=== PATIENT | female | born 1985 | race Caucasian/White ===

== ENCOUNTER 2016-10-17 10:33 | Emergency (ER) | payer OTHER ==
[~2016-10-17] VITALS: Ht 152.4 cm; Wt 52.3 kg
[~2016-10-17 10:33] MED LIST: PRLSR20 PO; RANI150T3 PO
[2016-10-17 10:44] VITALS: TEMP 36.6; Ht 152.4 cm; Wt 52.3 kg
[2016-10-17] MEDS ORDERED: KETOROLAC TROMETHAMINE 30 MG/ML VIAL IV STA (11:48)
[2016-10-17] MEDS ORDERED: SODIUM CHLORIDE 0.9% 1000ML 2,000 ML IV STA (11:48)
[2016-10-17 12:08] LABS: BASO % 0.2 %; BASO ABS # 0.03 K/uL (0-0.2); COMPLETE YES; EOS % 0.1 %; HEMATOCRIT 39.3 % (37-47); IG% 0.4 %; LYMPH % 19.1 %; LYMPH ABS # 2.33 K/uL (1.2-3.4); MEAN CELL VOLUME 100.5 fL (80-100); MEAN CORPUSCULAR HEMOGLOBIN 33.5 pg (25-34); MEAN CORPUSCULAR HGB CONC 33.3 g/dl (32-36); MEAN PLATELET VOLUME 9.2 fL (7.4-10.4); MONO % 5.8 %; NEUT % 74.4 %; PLATELET COUNT 356 K/uL (130-400); RED BLOOD COUNT 3.91 M/uL (4.2-5.4); WHITE BLOOD COUNT 12.22 K/uL (4.8-10.8)
[2016-10-17 12:16] LABS: BUN/CREATININE RATIO 19.2 (10-20); CALCIUM 9.6 mg/dl (8.5-10.1); CREATININE 0.96 mg/dl (0.60-1.20)
[2016-10-17] MEDS ORDERED: DiphenhydrAMINE HCL 50 MG/ML VIAL IV STA (12:47)
[2016-10-17 12:48] VITALS: BP 134/84; PULSE 86; O2SAT 100
--- NOTE | 2016-10-17 13:03 | DIAGNOSTIC IMAGING REPORT ---
CT SCAN OF THE BRAIN WITHOUT IV CONTRAST CLINICAL HISTORY: Headache. COMPARISON STUDY: CT of the brain dated 11/09/2006. TECHNIQUE: Unenhanced axial CT scan of the brain is performed from the vertex to the skull base. Automated dose control exposure was utilized. A dose lowering technique was utilized adhering to the principles of ALARA. CT DOSE: 638.56 mGycm FINDINGS: Brain parenchyma: The brain parenchyma is normal in appearance. There is no hemorrhage, mass effect, or evidence of acute territorial ischemia by CT criteria. [place]-white matter is preserved. No extra-axial fluid collection is seen. Ventricles, sulci, cisterns: Normal in configuration. Intracranial vasculature: The visualized intracranial vasculature at the skull base is normal in appearance. Calvarium: Unremarkable. Sinuses and mastoids: The visualized paranasal sinuses are clear. The mastoid air cells are well pneumatized. Orbits: The bony orbits are grossly intact. IMPRESSION: No acute intracranial abnormality. Electronically signed by: Jaxson Santiago M.D. 10/17/2016 12:44 PM Dictated Date/Time: 10/17/2016 12:43 PM
--- NOTE | 2016-10-17 17:14 | EMERGENCY ROOM VISIT NOTE ---
History Report prepared by William: Deisy Dillon Under the Supervision of: Judi SanchezO. First contact with patient: 11:39 Chief Complaint: HEAD PAIN Stated Complaint: HEAD PAIN History of Present Illness The patient is a 31 year old female who presents to the Emergency Room with complaints of worsening head pain for the past two weeks. She states that her pain has been constant along the sides of her head bilaterally for the past two weeks. She describes her pain as "tight and burning." The patient saw her PCP a few days ago for this pain and was started on Prednisone. She states that her symptoms have persisted and today her pain is worse. She denies any modifying factors. The patient rates her current pain as an 8.5/10 in severity. She notes that the pain is along her scalp/skull. It is not a deep/internal headache. She has a history of migraine headaches, but states that this feels completely different. Pt denies rash, changes in vision, fevers, chest pain, shortness of breath, nausea, vomiting, diarrhea, pain with urination, and melena. She denies any recent trauma or injury to her head. She started shaking this morning. LNMP was 2 weeks ago. Source of History: patient Onset: 2 weeks ago Position: head Symptom Intensity: 8.5/10 Quality: burning, other (tight) Timing: constant, worsening Associated Symptoms: No fevers, No chest pain, No SOB, No nausea, No vomiting, No melena, No diarrhea, No urinary symptoms, No rash Review of Systems See HPI for pertinent positives & negatives. A total of 10 systems reviewed and were otherwise negative. Past Medical & Surgical Medical Problems: (1) Atrophic gastritis without mention of hemorrhage (2) Chronic sinusitis, unspecified (3) Other specified cardiac dysrhythmias (4) Reflux esophagitis Family History FHx: hypertension Social History Smoking Status: Current Every Day Smoker Marital Status: single Housing Status: lives with family Occupation Status: unemployed Current/Historical Medications Scheduled Omeprazole (Prilosec), 20 MG PO BID Ranitidine Hcl (Zantac), 150 MG PO BID Allergies Coded Allergies: No Known Allergies (Unverified , 10/15/15) Physical Exam Vital Signs Date Time Temp Pulse Resp B/P (MAP) Pulse Ox O2 Delivery O2 Flow Rate FiO2 10/17/16 12:48 86 18 134/84 100 Room Air 10/17/16 10:44 36.6 110 22 162/108 100 Room Air Physical Exam GENERAL: alert, sitting up in bed, well appearing, well nourished, no distress, non-toxic HEAD: Base of occiput acute reproducible tenderness tracking up to bilateral parietal regions. No tenderness over TA EYE EXAM: normal conjunctiva, PERRL and EOM's grossly intact OROPHARYNX: no exudate, no erythema, lips, buccal mucosa, and tongue normal and mucous membranes are moist NECK: supple, no nuchal rigidity, no adenopathy, non-tender LUNGS: Clear to auscultation. Normal chest wall mechanics HEART: no murmurs, S1 normal and S2 normal ABDOMEN: abdomen soft, non-tender, normo-active bowel sounds, no masses, no rebound or guarding. BACK: Back is symmetrical on inspection and there is no deformity, no midline tenderness, no CVA tenderness. SKIN: no rashes and no bruising UPPER EXTREMITIES: upper extremities are grossly normal. LOWER EXTREMITIES: No pitting edema. NEURO EXAM: Normal sensorium, cranial nerves II-XII intact, normal speech, no weakness of arms, no weakness of legs. No drift. Finger to nose intact. Gross sensation intact. Medical Decision & Procedures ER Provider Diagnostic Interpretation: Radiology results as stated below per my review and the radiologist's interpretation: CT SCAN OF THE BRAIN WITHOUT IV CONTRAST CLINICAL HISTORY: Headache. COMPARISON STUDY: CT of the brain dated 11/09/2006. TECHNIQUE: Unenhanced axial CT scan of the brain is performed from the vertex to the skull base. Automated dose control exposure was utilized. A dose lowering technique was utilized adhering to the principles of ALARA. CT DOSE: 638.56 mGycm FINDINGS: Brain parenchyma: The brain parenchyma is normal in appearance. There is no hemorrhage, mass effect, or evidence of acute territorial ischemia by CT criteria. [place]-white matter is preserved. No extra-axial fluid collection is seen. Ventricles, sulci, cisterns: Normal in configuration. Intracranial vasculature: The visualized intracranial vasculature at the skull base is normal in appearance. Calvarium: Unremarkable. Sinuses and mastoids: The visualized paranasal sinuses are clear. The mastoid air cells are well pneumatized. Orbits: The bony orbits are grossly intact. IMPRESSION: No acute intracranial abnormality. Electronically signed by: Jaxson Santiago M.D. 10/17/2016 12:44 PM Dictated Date/Time: 10/17/2016 12:43 PM Laboratory Results 10/17/16 11:40 Red Blood Count 3.91, Mean Corpuscular Volume 100.5, Mean Corpuscular Hemoglobin 33.5, Mean Corpuscular Hemoglobin Concent 33.3, Mean Platelet Volume 9.2, Neutrophils (%) (Auto) 74.4, Lymphocytes (%) (Auto) 19.1, Monocytes (%) ( Auto) 5.8, Eosinophils (%) (Auto) 0.1, Basophils (%) (Auto) 0.2, Neutrophils # ( Auto) 9.09, Lymphocytes # (Auto) 2.33, Monocytes # (Auto) 0.71, Eosinophils # ( Auto) 0.01, Basophils # (Auto) 0.03 10/17/16 11:40 Test 10/17/16 11:40 White Blood Count 12.22 K/uL (4.8-10.8) Red Blood Count 3.91 M/uL (4.2-5.4) Hemoglobin 13.1 g/dL (12.0-16.0) Hematocrit 39.3 % (37-47) Mean Corpuscular Volume 100.5 fL (80-100) Mean Corpuscular Hemoglobin 33.5 pg (25-34) Mean Corpuscular Hemoglobin Concent 33.3 g/dl (32-36) Platelet Count 356 K/uL (130-400) Mean Platelet Volume 9.2 fL (7.4-10.4) Neutrophils (%) (Auto) 74.4 % Lymphocytes (%) (Auto) 19.1 % Monocytes (%) (Auto) 5.8 % Eosinophils (%) (Auto) 0.1 % Basophils (%) (Auto) 0.2 % Neutrophils # (Auto) 9.09 K/uL (1.4-6.5) Lymphocytes # (Auto) 2.33 K/uL (1.2-3.4) Monocytes # (Auto) 0.71 K/uL (0.11-0.59) Eosinophils # (Auto) 0.01 K/uL (0-0.5) Basophils # (Auto) 0.03 K/uL (0-0.2) RDW Standard Deviation 57.5 fL (36.4-46.3) RDW Coefficient of Variation 15.6 % (11.5-14.5) Immature Granulocyte % (Auto) 0.4 % Immature Granulocyte # (Auto) 0.05 K/uL (0.00-0.02) Anion Gap 8.0 mmol/L (3-11) Est Creatinine Clear Calc Drug Dose 61.0 ml/min Estimated GFR () 91.3 Estimated GFR (Non- 78.8 BUN/Creatinine Ratio 19.2 (10-20) Calcium Level 9.6 mg/dl (8.5-10.1) Laboratory results per my review. Medications Administered Medications (Trade) Dose Ordered Sig/Garcia Route Start Time Stop Time Status Last Admin Dose Admin Sodium Chloride 2,000 ml @ 999 mls/hr Q2H1M STAT IV 10/17/16 11:48 10/17/16 13:49 DC 10/17/16 12:01 999 MLS/HR Ketorolac Tromethamine (Toradol Inj) 30 mg NOW STAT IV 10/17/16 11:48 10/17/16 11:49 DC 10/17/16 12:02 30 MG Diphenhydramine HCl (Benadryl Inj) 50 mg NOW STAT IV 10/17/16 12:47 10/17/16 12:48 DC 10/17/16 12:56 50 MG ED Course ED COURSE: Vital signs were reviewed and showed hypertensive, tachycardic. The patients medical record was reviewed The above diagnostic studies were performed and reviewed. ED treatments and interventions as stated above. 1139: The patient was evaluated in room C9. A complete history and physical examination was performed. 1148: Toradol 30 mg IV, NSS 2000 ml @ 999 mls/hr IV 1232: I reassessed the patient. She is feeling better and going to CT. 1247: Benadryl 50 mg IV 1315: Upon reevaluation, the patient is doing well. I discussed my findings with the patient and she understands and agrees with the treatment plan. Based on the patients age, coexisting illnesses, exam and lab findings the decision to treat as an outpatient was made. The patient remained stable while under my care. The patient appeared well at the time of discharge. Medical Decision Differential Diagnosis includes but is not limited to headache, tension headache , cluster headache, migraine, subarachnoid hemorrhage, meningitis, mass, central venous thrombus, concussion, trauma and epidural/subdural hemorrhage. Patient is a 31-year-old female who presents to the ER for headache which tracks from her OA joint to the bilateral parietal regions. It is reproducible. I believe that this is likely secondary to her posterior cervical nerves. Patient is otherwise neurologically intact. CT head was negative. No fevers. No signs meningitis or encephalitis. I do not believe this is consistent with subarachnoid bleed. CBC shows a white count of 12,000 which I favor is likely elevated secondary to steroids. BMP is unremarkable. Patient was given IV Toradol and Benadryl. She had improvement of her symptoms. She was discharged to follow-up with her primary care doctor and encouraged to continue her steroids. Discussed with Pt concerning signs and symptoms to watch out for. Pt was instructed to follow up with their PCP and discussed with the patient their option to return to the ED at anytime for persistent or worsening symptoms. The appropriate anticipatory guidance and out- patient management, including indications for return to the emergency department , were explained at length to the patient and understood. Medication Reconcilliation Current Medication List: was personally reviewed by me Blood Pressure Screening Patient's blood pressure: Elevated blood pressure Blood pressure disposition: Elevated BP felt to be situational Impression Primary Impression: Cephalgia Scribe Attestation The scribe's documentation has been prepared under my direction and personally reviewed by me in its entirety. I confirm that the note above accurately reflects all work, treatment, procedures, and medical decision making performed by me. Departure Information Dispostion Home / Self-Care Referrals No Doctor, Assigned (PCP) Bandar Dotson M.D. Forms HOME CARE DOCUMENTATION FORM, IMPORTANT VISIT INFORMATION, WORK / SCHOOL INSTRUCTIONS Patient Instructions ED Cephalgia Unspecified, My [facility] Additional Instructions Please follow up with your primary care doctor with in the next 24 hours. Any worsening of your symptoms, please return to the ED immediately. This includes any fevers greater than 100.4, worsening pain, chest pain, shortness breath, persistent nausea, vomiting, unable to eat or drink, or any other concerning signs or symptoms from your standpoint. You were given medications during this visit that will inhibit your ability to drive, operate machinery and work. Please do NOT drive, operate machinery, drink alcohol or work for the next 12hrs. Problem Qualifiers Primary Impression: Cephalgia Headache type: unspecified Headache chronicity pattern: unspecified pattern Intractability: not intractable Qualified Codes: R51 - Headache
== END 2016-10-17 13:18 | disposition home or self-care (01) ==
LOC: C.EDB 10:35 → C.EDC 13:18
DX: R51 Headache (principal); K21.0 Gastro-esophageal reflux disease with esophagitis; Z82.49 Family history of ischemic heart disease and other diseases of the circulatory system; F17.210 Nicotine dependence, cigarettes, uncomplicated; Z79.899 Other long term (current) drug therapy

== ENCOUNTER 2017-06-03 12:57 | Emergency (ER) | payer OTHER ==
[~2017-06-03] VITALS: Ht 152.4 cm; Wt 49.9 kg
[2017-06-03 13:03] VITALS: TEMP 36.4; Ht 152.4 cm; Wt 49.9 kg
[2017-06-03] MEDS ORDERED: RANITIDINE HCL 150 MG TAB PO ONE (13:15)
[2017-06-03 13:26] VITALS: O2SAT 97
[2017-06-03 13:34] LABS: BASO % 0.1 %; BASO ABS # 0.01 K/uL (0-0.2); EOS % 0.2 %; EOS ABS # 0.02 K/uL (0-0.5); HEMATOCRIT 41.6 % (37-47); HEMOGLOBIN 13.7 g/dL (12.0-16.0); IG# 0.02 K/uL (0.00-0.02); LYMPH % 15.5 %; LYMPH ABS # 1.63 K/uL (1.2-3.4); MEAN CELL VOLUME 97.4 fL (80-100); MEAN CORPUSCULAR HEMOGLOBIN 32.1 pg (25-34); MEAN CORPUSCULAR HGB CONC 32.9 g/dl (32-36); MEAN PLATELET VOLUME 9.6 fL (7.4-10.4); MONO % 4.4 %; MONO ABS # 0.46 K/uL (0.11-0.59); NEUT % 79.6 %; NEUT ABS # 8.36 K/uL (1.4-6.5); PLATELET COUNT 314 K/uL (130-400); RED CELL DISTRIBUTION WIDTH CV 15.3 % (11.5-14.5); RED CELL DISTRIBUTION WIDTH SD 54.2 fL (36.4-46.3)
--- NOTE | 2017-06-03 13:40 | DIAGNOSTIC IMAGING REPORT ---
CHEST ONE VIEW PORTABLE CLINICAL HISTORY: chest tight, palpitations chest pain COMPARISON STUDY: 03/08/2015 FINDINGS: The bones soft tissues and hemidiaphragms are normal. The cardiomediastinal silhouette is normal. The lungs are clear. The pulmonary vasculature is normal. IMPRESSION: Negative chest. The above report was generated using voice recognition software. It may contain grammatical, syntax or spelling errors. Electronically signed by: Bandar Manzano M.D. 06/03/2017 1:39 PM Dictated Date/Time: 06/03/2017 1:38 PM
[2017-06-03 13:52] LABS: CALCIUM 9.9 mg/dl (8.5-10.1); CREATININE 0.91 mg/dl (0.60-1.20); POTASSIUM 3.6 mmol/L (3.5-5.1)
[2017-06-03 13:55] LABS: TOTAL PROTEIN 8.6 gm/dl (6.4-8.2)
[2017-06-03 13:56] LABS: PTT PATIENT 30.3 SECONDS (21.0-31.0)
--- NOTE | 2017-06-03 14:20 | EMERGENCY ROOM VISIT NOTE ---
History Report prepared by William: Jocelyn Muhammad Under the Supervision of: Dr. Alena Olguin M.D. First contact with patient: 13:06 Chief Complaint: CARDIAC ASSESSMENT Stated Complaint: RIB CHEST & STOMACH PAIN History of Present Illness The patient is a 32 year old female who presents to the Emergency Room with complaints of a constant of rib pain starting a few months ago. The patient states that it comes and goes on both sides. She states that she woke up this morning and noticed her heart started to race after taking her medications. She reports that she thought she was having a panic attack so went to take a shower. She states that she became dizzy and lightheaded. She reports that she decided to lie down to in an attempt to control it. The patient states that when she did so, the pain radiated into her chest and her back. She currently rates her pain as a 5/10 in severity. The patient denies fever, urinary symptoms , recent long trips, a history of asthma, and a family history of blood clots. She notes that she is a smoker and has had an IUD in place since 2013. She notes that she had a scope done 8 years ago that showed she had an ulcer and gastritis. She has been on a PPI and Zantac since that time however she is attempting to wean off of these medicines at the recommendation of her PCP. Source of History: patient Onset: a few months ago Position: other (rib pain) Symptom Intensity: 5/10 Timing: constant Associated Symptoms: + chest pain, + back pain, No fevers, No urinary symptoms Note: The patient complains of a racing heart, lightheadedness, an dizziness. Review of Systems See HPI for pertinent positives & negatives. A total of 10 systems reviewed and were otherwise negative. Past Medical & Surgical Medical Problems: (1) Atrophic gastritis without mention of hemorrhage (2) Chronic sinusitis, unspecified (3) Gastric ulcer (4) Other specified cardiac dysrhythmias (5) Reflux esophagitis Social History Problems: (1) IUD (intrauterine device) in place Family History FHx: hypertension Social History Smoking Status: Current Every Day Smoker Marital Status: single Housing Status: lives with family Occupation Status: unemployed Current/Historical Medications Scheduled Omeprazole (Prilosec), 20 MG PO DAILY Allergies Coded Allergies: No Known Allergies (Unverified , 4/22/18) Physical Exam Vital Signs Date Time Temp Pulse Resp B/P (MAP) Pulse Ox O2 Delivery O2 Flow Rate FiO2 06/03/17 15:11 62 14 126/82 100 06/03/17 14:37 57 21 118/72 100 Room Air 06/03/17 13:28 97 Room Air 06/03/17 13:26 97 Room Air 06/03/17 13:16 74 06/03/17 13:11 68 131/96 98 Room Air 06/03/17 13:03 36.4 76 18 147/95 100 Room Air Physical Exam Vital signs reviewed. General: Well-appearing, in no significant distress. HEENT: No scleral icterus, PERRLA, neck supple. Atraumatic. Cardiovascular: Regular rate and rhythm, no extra sounds. Pulmonary: Clear to auscultation bilaterally, normal work of breathing. Abdomen: Soft, nontender, nondistended, positive bowel sounds. Musculoskeletal: Atraumatic, no peripheral edema. Neurologic: Patient awake alert and oriented x 3 Skin: Warm, dry, no rash Medical Decision & Procedures ER Provider Diagnostic Interpretation: Radiology results as stated below per my review and radiologist interpretation: CHEST ONE VIEW PORTABLE CLINICAL HISTORY: chest tight, palpitations chest pain COMPARISON STUDY: 03/08/2015 FINDINGS: The bones soft tissues and hemidiaphragms are normal. The cardiomediastinal silhouette is normal. The lungs are clear. The pulmonary vasculature is normal. IMPRESSION: Negative chest. The above report was generated using voice recognition software. It may contain grammatical, syntax or spelling errors. Electronically signed by: Bandar Manzano M.D. 06/03/2017 1:39 PM Dictated Date/Time: 06/03/2017 1:38 PM Laboratory Results 06/03/17 13:25 Red Blood Count 4.27, Mean Corpuscular Volume 97.4, Mean Corpuscular Hemoglobin 32.1, Mean Corpuscular Hemoglobin Concent 32.9, Mean Platelet Volume 9.6, Neutrophils (%) (Auto) 79.6, Lymphocytes (%) (Auto) 15.5, Monocytes (%) (Auto) 4.4, Eosinophils (%) (Auto) 0.2, Basophils (%) (Auto) 0.1, Neutrophils # (Auto) 8.36, Lymphocytes # (Auto) 1.63, Monocytes # (Auto) 0.46, Eosinophils # (Auto) 0.02, Basophils # (Auto) 0.01 06/03/17 13:25 Test 06/03/17 13:25 White Blood Count 10.50 K/uL (4.8-10.8) Red Blood Count 4.27 M/uL (4.2-5.4) Hemoglobin 13.7 g/dL (12.0-16.0) Hematocrit 41.6 % (37-47) Mean Corpuscular Volume 97.4 fL (80-100) Mean Corpuscular Hemoglobin 32.1 pg (25-34) Mean Corpuscular Hemoglobin Concent 32.9 g/dl (32-36) Platelet Count 314 K/uL (130-400) Mean Platelet Volume 9.6 fL (7.4-10.4) Neutrophils (%) (Auto) 79.6 % Lymphocytes (%) (Auto) 15.5 % Monocytes (%) (Auto) 4.4 % Eosinophils (%) (Auto) 0.2 % Basophils (%) (Auto) 0.1 % Neutrophils # (Auto) 8.36 K/uL (1.4-6.5) Lymphocytes # (Auto) 1.63 K/uL (1.2-3.4) Monocytes # (Auto) 0.46 K/uL (0.11-0.59) Eosinophils # (Auto) 0.02 K/uL (0-0.5) Basophils # (Auto) 0.01 K/uL (0-0.2) RDW Standard Deviation 54.2 fL (36.4-46.3) RDW Coefficient of Variation 15.3 % (11.5-14.5) Immature Granulocyte % (Auto) 0.2 % Immature Granulocyte # (Auto) 0.02 K/uL (0.00-0.02) Prothrombin Time 10.7 SECONDS (9.0-12.0) Prothromb Time International Ratio 1.0 (0.9-1.1) Activated Partial Thromboplast Time 30.3 SECONDS (21.0-31.0) Partial Thromboplastin Ratio 1.2 D-Dimer < 190 ug/L FEU (0-500) Anion Gap 8.0 mmol/L (3-11) Est Creatinine Clear Calc Drug Dose 63.8 ml/min Estimated GFR () 96.8 Estimated GFR (Non- 83.5 BUN/Creatinine Ratio 14.1 (10-20) Calcium Level 9.9 mg/dl (8.5-10.1) Total Bilirubin 0.5 mg/dl (0.2-1) Direct Bilirubin 0.1 mg/dl (0-0.2) Aspartate Amino Transf (AST/SGOT) 15 U/L (15-37) Alanine Aminotransferase (ALT/SGPT) 21 U/L (12-78) Alkaline Phosphatase 88 U/L (45-117) Troponin I < 0.015 ng/ml (0-0.045) Total Protein 8.6 gm/dl (6.4-8.2) Albumin 5.0 gm/dl (3.4-5.0) Laboratory results per my review. Medications Administered Medications (Trade) Dose Ordered Sig/Garcia Route Start Time Stop Time Status Last Admin Dose Admin Ranitidine HCl (zANTac TAB) 150 mg NOW ONCE PO 06/03/17 13:15 06/03/17 13:16 DC 06/03/17 13:40 150 MG ECG Per My Interpretation Indication: chest pain Rate (beats per minute): 54 Rhythm: sinus bradycardia Findings: no acute ischemic change, no ectopy ED Course 1308: Past medical records reviewed. The patient was evaluated in room C2B. A complete history and physical examination was performed. 1315: Ordered Ranitidine HCl 150 mg PO. Medical Decision Differential diagnosis: Etiologies such as premature contractions, electrolyte abnormality, cardiac dysrhythmia, thyroid dysfunction, pulmonary embolism, infection, gastrointestinal, as well as others were entertained. This patient was evaluated and appeared to be in no significant distress. IV access was obtained and laboratory work was drawn. The patient was placed on the clinic physician director and found to be in a normal sinus rhythm. EKG reveals no evidence of acute ischemic change. There is no dysrhythmia identified. Patient was given Zantac 150 mg p.o. Chest x-ray was obtained and is clear. Cardiac enzymes and d-dimer are normal. The patient was reevaluated and was feeling improved. I suspect she is suffering from pleurisy secondary to her tobacco smoking as well as gastritis. She has been cutting down on her PPI which is reasonable after long-term management however I do not think she is tolerating it well at this time. She was encouraged to maintain Prilosec 20 mg daily as well as Zantac 150 p.o. twice daily. The patient was encouraged to stop smoking as soon as possible. She will follow-up with her primary care physician and consider GI follow-up if needed. She will return to the ER for worsening of symptoms or any medical concerns. Medication Reconcilliation Current Medication List: was personally reviewed by me Impression Primary Impression: Pleurisy Additional Impressions: GERD (gastroesophageal reflux disease) Palpitations Scribe Attestation The scribe's documentation has been prepared under my direction and personally reviewed by me in its entirety. I confirm that the note above accurately reflects all work, treatment, procedures, and medical decision making performed by me. Departure Information Referrals No Doctor, Assigned (PCP) Patient Instructions [facility] Problem Qualifiers
[2017-06-03 15:11] VITALS: BP 126/82; PULSE 62; O2SAT 100
== END 2017-06-03 15:11 | disposition home or self-care (01) ==
LOC: C.EDB 13:00 → C.EDC 15:11
DX: R09.1 Pleurisy (principal); K21.9 Gastro-esophageal reflux disease without esophagitis; R00.2 Palpitations; F17.210 Nicotine dependence, cigarettes, uncomplicated; Z97.5 Presence of (intrauterine) contraceptive device; Z82.49 Family history of ischemic heart disease and other diseases of the circulatory system; Z79.899 Other long term (current) drug therapy

== ENCOUNTER 2018-08-09 03:49 | Inpatient (IN) ==
[2018-08-09] MEDS ORDERED: OXYTOCIN 30 UNITS/500 ML BAG IV PRN ×3 (04:38→10:50)
[2018-08-09] MEDS: LACTATED RINGER'S 1,000 ML IV PRN ×2 (04:58→06:08)
[2018-08-09] MEDS ORDERED: BUPIVACAINE 0.25% 30 ML VIAL ONE (05:28)
[2018-08-09] MEDS ORDERED: ePHEDrine sulfate 50 MG/ML AMP ONE (05:28)
[2018-08-09] MEDS ORDERED: fentaNYL 2MCG/ML ROPIV 1.25MG/ML 100 ML BAG EPI ONE (05:28)
[2018-08-09] MEDS ORDERED: fentaNYL citrate 100 MCG/2 ML VIAL ONE (05:28)
[2018-08-09 05:42] LABS: Hematocrit (blood only) 34.2 % (37-47); Hemoglobin 12.1 g/dL (12.0-16.0); Mean Corpuscular Volume 101.2 fL (80-100); Mean Platelet Volume 9.6 fL (7.4-10.4); Platelet Count 208 K/uL (130-400); RDW Coefficient of Variation 13.1 % (11.5-14.5); RDW Standard Deviation 47.8 fL (36.4-46.3); Red Blood Count 3.38 M/uL (4.2-5.4)
[2018-08-09 05:45] LABS: Mean Corpuscular Hgb Conc 35.4 g/dL (32-36)
--- NOTE | 2018-08-09 06:01 | Anesthesiology Consultation ---
Date of Service August 09, 2018 Assessment & Plan Chart Review Chart Review: Patient NOT seen in Pre Admission Testing and Acceptable Risk for Labor Epidural Consults Requested none ASA ASA2 Proposed Anesthesia Anesthesia Type: Labor Epidural and CSE Risk / Benefits Reviewed With: PT / POA / Parent / Guardian, Accepts Plan and Informed Consent Obtained History Height/Weight Height: 5 ft Weight: 63.142 kg Allergies Allergy/AdvReac Type Severity Reaction Status Date / Time No Known Allergies Allergy Verified 07/30/18 13:18 Medications Home Medications Medication Instructions Recorded Confirmed Last Taken omeprazole 20 mg PO QAM #0 cap 10/15/15 07/30/18 07/02/18 08:00 PNV cmb#95-ferrous fumarate-FA 1 tab PO QPM 01/08/18 07/30/18 07/01/18 20:00 [] Active Medications Generic Name Dose Route Start Last Admin Trade Name Freq PRN Reason Stop Dose Admin Lactated Ringer's 1,000 mls @ 125 mls/hr 08/09/18 04:38 08/09/18 04:58 Lr IV 08/11/18 04:37 999 mls/hr .Q8H PRN Administration L&D Protocol Protocol NPO Date Last Intake of Fluids: 08/09/18 Time Last Intake of Fluids: 05:00 Date Last Intake of Solids: 08/08/18 Time Last Intake of Solids: 20:00 Past Medical History Medical History Other specified cardiac dysrhythmias (Chronic) Reflux esophagitis (Chronic) Chronic sinusitis, unspecified (Chronic) (Inactive) CURRENT ISSUE GERD (gastroesophageal reflux disease) Exercise / Class Metabolic Activity II 4-5 Yardwork/Stairs/Walk up hill Past Family History Family History Other No pertinent family history Past Surgical History Surgical History Hx of section Due to Breech presentation - 2012 Past Anesthesia History No Hx of Anesthesia Complications and No Family Hx of Anesthesia Complications Social History Smoking Status: Current every day smoker tobacco type: cigarettes Smoking cigarettes per day: <1/2 ppd Hx Alcohol Use: No Hx Substance Use: No Review of Systems no chest pain or sob Physical Exam Vital Signs Last Vital Signs Pulse 76 08/09/18 04:07 Resp 18 08/09/18 04:12 BP 138/62 08/09/18 04:07 temp 36.4 spO2 100 ENMT Mouth: no TMJ abnormality Thyromental Distance: > or= 3.5 Finger Breadths Mallampati Class: II Neck normal visual inspection Respiratory normal respiratory effort Auscultation: lungs clear to auscultation bilaterally Cardiovascular Rate/Rhythm: regular rate and regular rhythm Musculoskeletal Spine: normal cervical ROM Neurologic moves all extremities Psychiatric Orientation: alert and oriented x 3 Testing Laboratory Results 08/09/18 04:48 08/09/18 05:02 POC Glucose 98
[2018-08-09] MEDS ORDERED: NALOXONE HCL 1 MG in SODIUM CHLORIDE 0.9% 1000ML 1,000 ML IV PRN (06:15)
[2018-08-09] MEDS ORDERED: NALBUPHINE HCL INJ 10 MG/ML AMP IV PRN (06:15)
[2018-08-09] MEDS ORDERED: ONDANSETRON INJ 2 MG/ML 2 ML VIAL IV PRN (06:15)
[2018-08-09] MEDS ORDERED: NALOXONE HCL 0.4 MG/1 ML VIAL/CARP IV PRN (06:15)
[2018-08-09] MEDS ORDERED: ePHEDrine sulfate 50 MG/ML AMP IV PRN (06:15)
[2018-08-09] MEDS ORDERED: fentaNYL 2MCG/ML ROPIV 1.25MG/ML 100 ML BAG EPI PRN (06:15)
[2018-08-09] MEDS ORDERED: DiphenhydrAMINE HCL 50 MG/ML VIAL IV PRN (06:15)
--- NOTE | 2018-08-09 08:04 | History and Physical Report ---
DATE OF ADMISSION: 08/09/2018 HISTORY OF PRESENT ILLNESS: The patient is a 33-year-old G4, P3 at 38 weeks and 4 days who presented to labor and delivery with spontaneous rupture of membranes at 2:45 a.m. today. On arrival, she had no shortness of breath, no chills, no fever. She is grossly ruptured. This was confirmed with estrogen. The patient is therefore admitted. The patient was originally scheduled for repeat section because of prior section. On arrival, she had decided to undergo a trial of labor after . I have discussed the risks with the patient including but not limited to uterine rupture. The patient tells me she understands the risks and signed the labor and delivery, consent from [facility]. I have made the patient aware that uterine rupture is rare and the consequences of uterine rupture including again, but not limited to and maternal . The patient's has been complicated by history of IUGR, tobacco use, chronic hypertension but not on any medications in this . The patient is gestational diabetes 1, on diet. The patient also has history of genital herpes and has been on suppressive therapy since 36 weeks. PAST MEDICAL HISTORY: History of herpes, history of abnormal Pap smear, chronic hypertension, and gestational diabetes. PAST SURGICAL HISTORY: History of section and dental surgeries as well as hand surgery. FAMILY HISTORY: Noncontributory. ALLERGIES: No known drug allergies. SOCIAL HISTORY: The patient is a smoker. Denies drug and alcohol use in . PHYSICAL EXAMINATION: GENERAL: Well-developed, well-nourished white female in no acute distress. HEART: S1, S2, regular rhythm and rate. LUNGS: Clear to auscultation bilaterally. ABDOMEN: Gravid. Bedside exam showed she is 3-4 cm, 50% effaced, and -2. On arrival, heart rate is category 2. EXTREMITIES: No cyanosis, clubbing or edema. ASSESSMENT AND PLAN: A 33-year-old G4, P2 at 38 weeks and 4, term, premature rupture of membranes. The patient was initiated repeat section, now has decided to do trial of labor after . We have discussed risk as dictated above. We will continue to monitor patient and I hopefully anticipate vaginal delivery. [facility]
--- NOTE | 2018-08-09 08:51 | Obstetrical Progress Note ---
Date of Service August 09, 2018 Physical Exam Genitourinary: Manual OB Exam: + cervical dilation 5 cm, + cervical effacement 90% and + station -1 OB Exam Monitor Tracing: + external FHT monitor used, + external uterine monitor used, + category I and + normal FHT variability contractions are spacing out with epidural Will start Oxytocin to augment contractions patient in agreement Results & Data Vital Signs (Past 12 Hours) Vital Signs Temp Pulse Resp BP Pulse Ox 08/09/18 08:47 84 98 08/09/18 08:42 62 98 08/09/18 08:38 61 110/58 L 08/09/18 08:37 61 97 08/09/18 08:32 75 98 08/09/18 08:27 59 L 98 08/09/18 08:23 58 L 108/60 08/09/18 08:22 58 L 98 08/09/18 08:17 69 99 08/09/18 08:12 63 98 08/09/18 08:09 57 L 105/58 L 08/09/18 08:07 60 98 08/09/18 08:02 61 98 08/09/18 07:57 71 98 08/09/18 07:54 61 91/58 L 08/09/18 07:52 63 98 08/09/18 07:47 36.3 C L 65 18 99 08/09/18 07:42 70 99 08/09/18 07:39 68 112/64 08/09/18 07:37 73 99 08/09/18 07:32 72 98 08/09/18 07:27 79 98 08/09/18 07:24 75 112/71 08/09/18 07:22 67 97 08/09/18 07:17 80 97 08/09/18 07:12 80 98 08/09/18 07:11 75 113/65 08/09/18 07:07 79 97 08/09/18 07:02 68 97 08/09/18 06:57 71 97 08/09/18 06:53 65 111/61 08/09/18 06:52 72 97 08/09/18 06:47 63 98 08/09/18 06:42 63 98 08/09/18 06:38 63 119/60 08/09/18 06:37 62 98 08/09/18 06:32 68 99 08/09/18 06:30 18 08/09/18 06:27 66 99 08/09/18 06:23 65 120/72 08/09/18 06:22 70 100 08/09/18 06:20 80 122/71 08/09/18 06:18 67 126/75 08/09/18 06:17 63 100 08/09/18 06:15 74 18 117/74 08/09/18 06:12 68 128/88 100 08/09/18 06:07 72 100 08/09/18 06:02 73 100 08/09/18 05:59 36.4 C L 08/09/18 04:12 18 08/09/18 04:07 76 138/62
[2018-08-09] MEDS ORDERED: SUPERCREAM 0.870% 15 GM JAR EXT PRN (10:50)
[2018-08-09] MEDS ORDERED: MEASLES, MUMPS & RUBELLA VIRUS VIAL SQ ONE (10:50)
[2018-08-09] MEDS ORDERED: HYDROCORTISONE ACETATE 25 MG SUPP PR PRN (10:50)
[2018-08-09] MEDS ORDERED: BENZOCAINE 20% AER SPR 82.5 GM CAN EXT PRN (10:50)
[2018-08-09] MEDS ORDERED: DIPHTHERIA/TETANUS/PERTUSSIS 0.5 ML SYR/VIAL IM ONE (10:50)
--- NOTE | 2018-08-09 10:56 | Procedure Note ---
Vaginal Delivery Summary Date of Service August 09, 2018 Vaginal Delivery Summary Delivery Note / live male TYRONE over intact perineum with nuchal cord x1 reduced at perineum. Delayed cord clamping with Apgars 8/9 weight pending. Cord blood obtained and placenta delivered spontaneously and intact. No tears. EBL 100 ml. Final sponge and instrument count are found to be correct. Mom and baby stable.
--- NOTE | 2018-08-09 11:50 | Anesthesia Procedure Note ---
Date of Service August 09, 2018 Anesthesia Post Epidural Note Vital Signs Vital Signs: Temp Pulse Resp BP Pulse Ox 36.9 C 67 18 135/75 99 08/09/18 09:54 08/09/18 11:38 08/09/18 09:54 08/09/18 11:38 08/09/18 10:47 Notes Mental Status: alert / awake / arousable and participated in evaluation Nausea / Vomiting: adequately controlled Pain: adequately controlled Airway Patency, RR, SpO2: stable & adequate BP & HR: stable & adequate Hydration State: stable & adequate Neuraxial Anesthesia: was administered and sensory block is resolving Anesthetic Complications: no major complications apparent and Pt Satisfied with anesthetic care Epidural: Removed without complications and With tip intact Notes: Epidural site clean, dry and intact. No signs of edema, erythema or bruising at insertion site. Pt instructed to request anesthesia if she has residual lower extremity numbness or if she develops lower extremity pain or weakness, back pain or headache.
[2018-08-09] MEDS: IBUPROFEN 600 MG TAB PO PRN (15:48)
[2018-08-09] MEDS: NICOTINE 14 MG/24 HR PATCH TD SCH (15:48)
[2018-08-09] MEDS ORDERED: NON-FORMULARY MEDICATION (Pnv Cmb#95-Ferrous Fumarate-Fa [Prenatal] 1 TAB) PO SCH (21:00)
[2018-08-09] MEDS: ACETAMINOPHEN 325 MG TAB PO PRN (21:31)
[2018-08-09] MEDS: DOCUSATE SODIUM 100 MG CAP PO SCH (21:31)
[2018-08-10] MEDS: IBUPROFEN 600 MG TAB PO PRN ×2 (00:25→10:23)
[2018-08-10 08:00] LABS: Hemoglobin 11.9 g/dL (12.0-16.0); Mean Corpuscular Volume 102.1 fL (80-100); Mean Platelet Volume 9.9 fL (7.4-10.4); Platelet Count 186 K/uL (130-400); RDW Coefficient of Variation 13.1 % (11.5-14.5); RDW Standard Deviation 48.6 fL (36.4-46.3); Red Blood Count 3.33 M/uL (4.2-5.4); White Blood Count 9.61 K/uL (4.8-10.8)
[2018-08-10] MEDS ORDERED: PRENATAL VITAMIN 1 TAB PO SCH (08:00)
--- NOTE | 2018-08-10 08:29 | Obstetrical Progress Note ---
Date of Service August 10, 2018 Subjective doing well Physical Exam Constitutional: WD/WN, vitals as above comfortable abdomen soft non-tender fundus firm no edema neg Stephanie's for discharge Results & Data Vital Signs (Past 12 Hours) Vital Signs Temp Pulse Resp BP 08/10/18 04:50 36.7 C 72 18 127/79 08/10/18 00:25 36.3 C L 68 18 131/80 Laboratory Results Laboratory Results - last 48 hr 08/09/18 08/09/18 08/10/18 04:48 05:02 07:26 WBC 10.00 9.61 RBC 3.38 L 3.33 L Hgb 12.1 11.9 L Hct 34.2 L 34.0 L MCV 101.2 H 102.1 H MCH 35.8 H 35.7 H MCHC 35.4 35.0 RDW Std Deviation 47.8 H 48.6 H RDW Coeff of Deepika 13.1 13.1 Plt Count 208 186 MPV 9.6 9.9 POC Glucose 98
[2018-08-10] MEDS ORDERED: PANTOprazole 40 MG TAB PO SCH (09:00)
[2018-08-10] MEDS: ACETAMINOPHEN 325 MG TAB PO PRN (10:24)
[2018-08-10] MEDS: DOCUSATE SODIUM 100 MG CAP PO SCH (10:27)
[2018-08-10] MEDS: NICOTINE 14 MG/24 HR PATCH TD SCH (10:30)
[2018-08-10] MEDS ORDERED: BISACODYL 5 MG TABEC PO SCH (20:00)
[2018-08-11] MEDS ORDERED: BISACODYL 10 MG SUPP PR PRN (06:00)
== END 2018-08-10 15:50 | disposition home or self-care (01) | DRG 807 ==
LOC: OPB 03:49 → 4S1 03:51 → 4S2 15:14